=== PATIENT | male | born 1950 | race Caucasian/White ===

== ENCOUNTER → 2016-04-26 | Outpatient (CLI) | payer OTHER, BC ==
[~2016-04-26] MED LIST: ALLOPURINOL100 MG PO; ANDROGEL150 GM TD; ASPIRIN325 MG PO; ATENOLOL50 MG PO; Aspirin PO; CELEBREX200 MG PO; COLCRYS0.6 MG PO; CRESTOR40 MG PO; Colchicine,Colcrys PO; Coumadin dosing per PO; Coumadin,Jantoven PO; DULERA 100 MCG/13 GM IH; Dulera 100 mcg/5 mcg IH; Ecotrin PO; HYDROCODON-ACE1 EACH PO; IMDUR30 MG PO; Imdur PO; LEVAQUIN750 MG PO; LEVBID0.375 MG PO; LISINOPRIL5 MG PO; LUNESTA1 MG PO; Levbid,HyoMax SR PO; Lunesta PO; Miralax, Glycolax PO; NAPROSYN500 MG PO; NEXIUM40 MG PO; NITROGLYCERIN0.4 MG SL; Nitrostat,NitroQuick SL; PLAVIX75 MG PO; PREDNISONE10 MG PO; PREDNISONE2.5 MG PO; PROAIR HFA8.5 GM IH; Plavix PO; Proventil,Ventolin H IH; RANITIDINE HCL300 MG PO; RHINOCORT AQUA8.6 G1; RHINOCORT AQUA8.6 G1 BOTH NARES; SEROQUEL300 MG PO; SEROquel PO; SPIRIVA1 INHALATI IH; Senokot S,Pericolace PO; Tenormin PO; VESICARE10 MG PO; VICODIN 5-3001 EACH PO; Vicodin,Norco 5/325 PO; WELCHOL625 MG PO; XANAX0.5 MG PO; Xanax PO; ZETIA10 MG PO; ZOLOFT25 MG PO; Zantac PO; Zestril,Prinivil PO; Zoloft PO; Zyloprim PO
== END | disposition home or self-care (01) ==
LOC: NUC 08:58
DX: M25.551 Pain in right hip (principal); Z96.641 Presence of right artificial hip joint; Z88.0 Allergy status to penicillin; Z88.5 Allergy status to narcotic agent
CPT/HCPCS: 78315; A9503

== ENCOUNTER → 2016-05-02 | Outpatient (CLI) | payer OTHER, BC | END | disposition home or self-care (01) | LOC: NUC 06:09 | DX: M25.551 Pain in right hip (principal); Z96.641 Presence of right artificial hip joint; Z88.0 Allergy status to penicillin; Z88.5 Allergy status to narcotic agent | CPT/HCPCS: 78102; 78805; 78999; A9541; A9570 ==